=== PATIENT | female | born 1970 ===

== ENCOUNTER 2017-05-17 13:01 | Emergency (ER) | payer BC ==
[~2017-05-17] VITALS: Ht 160 cm; Wt 77.1 kg
[2017-05-17] MEDS ORDERED: MECLIZINE HCL25 MG (13:37)
[2017-05-17] MEDS ORDERED: BYSTOLIC10 MG (13:38)
[2017-05-17] MEDS ORDERED: VALSARTAN-HCTZ1 EAC1 (13:38)
[2017-05-17] MEDS ORDERED: VALACYCLOVIR500 MG (13:38)
[2017-05-17] MEDS ORDERED: LEVONOR-ETH ES1 EAC1 (13:39)
== END 2017-05-17 16:48 | disposition home or self-care (01) ==
LOC: ER 13:01
DX: N93.8 Other specified abnormal uterine and vaginal bleeding (principal); D26.1 Other benign neoplasm of corpus uteri

== ENCOUNTER 2017-05-22 07:08 | Outpatient (CLI) | payer OTHER ==
[~2017-05-22 07:08] MED LIST: BYSTOLIC10 MG; LEVONOR-ETH ES1 EAC1; MECLIZINE HCL25 MG; VALACYCLOVIR500 MG; VALSARTAN-HCTZ1 EAC1
== END 2017-05-22 17:00 | disposition home or self-care (01) ==
LOC: MRI 07:08
DX: R10.2 Pelvic and perineal pain (principal); N80.1 Endometriosis of ovary; C53.9 Malignant neoplasm of cervix uteri, unspecified
CPT/HCPCS: 72196